=== PATIENT | female | born 1950 | race Caucasian/White ===

== ENCOUNTER → 2021-08-14 | Outpatient (CLI) | payer MEDICARE, OTHER | LOC: MRI 10:30 | DX: I63.81 Other cerebral infarction due to occlusion or stenosis of small artery (principal); I65.29 Occlusion and stenosis of unspecified carotid artery; E11.42 Type 2 diabetes mellitus with diabetic polyneuropathy; G89.0 Central pain syndrome; I65.09 Occlusion and stenosis of unspecified vertebral artery; H90.5 Unspecified sensorineural hearing loss; R20.0 Anesthesia of skin | CPT/HCPCS: 70551 ==